=== PATIENT | female | born 1985 | race Caucasian/White ===

== ENCOUNTER 2018-06-14 20:43 | Emergency (ER) | payer MEDICARE ==
[~2018-06-14] VITALS: Ht 167.6 cm; Wt 77.3 kg
[2018-06-14 20:51] VITALS: Ht 167.6 cm; Wt 77.3 kg
[2018-06-14] MEDS ORDERED: TORADOL10 MG PO (22:21)
[2018-06-14 22:33] VITALS: BP 128/72
== END 2018-06-14 22:34 | disposition home or self-care (01) ==
LOC: D.ER 20:43
DX: S16.1XXA Strain of muscle, fascia and tendon at neck level, initial encounter (principal); V43.52XA Car driver injured in collision with other type car in traffic accident, initial encounter; Y93.89 Activity, other specified; Y92.410 Unspecified street and highway as the place of occurrence of the external cause; S00.03XA Contusion of scalp, initial encounter

== ENCOUNTER 2018-07-04 23:18 | Emergency (ER) | payer MEDICARE ==
[~2018-07-04] VITALS: Ht 167.6 cm; Wt 77.3 kg
[~2018-07-04 23:18] MED LIST: TORADOL10 MG PO
[2018-07-04 23:23] VITALS: Ht 167.6 cm; Wt 77.3 kg
[2018-07-04] MEDS ORDERED: IBUPROFEN800 MG PO (23:47)
[2018-07-05 00:15] VITALS: BP 107/62
[2018-07-10 19:07] LABS: AEROBE ID Final report (())
== END 2018-07-05 00:17 | disposition home or self-care (01) ==
LOC: D.ER 23:18
PROVIDERS: Family Medicine
DX: J02.0 Streptococcal pharyngitis (principal); R50.9 Fever, unspecified